=== PATIENT | female | born 1980 | race Caucasian/White ===

== ENCOUNTER 2016-11-22 13:02 | Emergency (ER) | payer SELFPAY ==
[~2016-11-22] VITALS: Ht 160 cm; Wt 83.0 kg
[2016-11-22] MEDS ORDERED: ANTIVERT25 MG PO (13:46)
[2016-11-22] MEDS ORDERED: ZOFRAN ODT4 MG PO (13:46)
[2016-11-22 14:15] VITALS: BP 128/90
[2016-11-22 14:25] LABS: POINT-OF-CARE METER ID UU13113702
== END 2016-11-22 14:15 | disposition home or self-care (01) ==
LOC: EXP 13:02 → EME 13:02 → EXP 14:15
PROVIDERS: Nurse Practitioner Family
DX: R42 Dizziness and giddiness (principal)
CPT/HCPCS: 82948; 99281; 99284